=== PATIENT | female | born 1935 | race Caucasian/White ===

== ENCOUNTER 2023-09-07 15:14 | Emergency (ER) | payer MEDICARE, MEDICAID, SELFPAY ==
--- NOTE | ~2023-09-07 | CT_ITS ---
EXAMINATION: CT head/brain wo IV con CLINICAL INFORMATION: Reason for Exam Acute psychosis, medical clearance COMPARISON: None available TECHNIQUE: Contiguous axial imaging was performed from the skull base to vertex without intravenous contrast. Sagittal and coronal reformatted images were obtained. This CT examination was performed using dose optimization techniques as appropriate, variously including the following: * Automated exposure control * Adjustment of mA and/or kV according to patient size (this includes techniques or standardized protocols for targeted exams where dose is matched to indication/reason for exam; i.e. extremities or head) Use of iterative reconstruction technique DLP: 508 mGy-cm FINDINGS: There is no evidence of acute intracranial hemorrhage. No mass-effect or ventricular shift is noted. No acute, territorial loss of ku-white differentiation. Prominence of the pituitary gland with upward convexity. Encephalomalacia/gliosis in the left frontal lobe. The ventricles and sulci are appropriate in size and configuration for the patient's stated age. Periventricular and subcortical white matter hypodensity is nonspecific but likely represents chronic microvascular ischemic change. No depressed calvarial fracture. Scattered polypoid mucosal thickening in the partially visualized paranasal sinuses. Intracranial atherosclerotic calcification is noted. Bilateral intraocular lens replacements. The mastoid air cells are clear. CT/CT head/brain wo IV con IMPRESSION: No acute intracranial hemorrhage or territorial loss of ku-white differentiation. Encephalomalacia/gliosis in the left frontal lobe. Prominence of the pituitary gland may represent an underlying pituitary adenoma. Correlation with biochemical testing is recommended.
--- NOTE | ~2023-09-07 | XR_ITS ---
EXAMINATION: XR CHEST CLINICAL INFORMATION: Evaluate pneumonia COMPARISON: None available. TECHNIQUE: 2 views of the chest were obtained. FINDINGS: Lungs are well expanded and clear. No interstitial disease, consolidation or pleural effusion. Cardiac silhouette is normal size. There is atherosclerotic calcification of the aorta. Surgical clips in the lower neck. Correlate for any remote history of thyroidectomy. Multilevel osteophyte formation of the thoracolumbar spine. A severe vertebral compression fracture is seen in the region of the thoracolumbar junction. XR/XR chest 2V IMPRESSION: * No acute pulmonary disease. No evidence of pneumonia. * A severe compression fracture is seen in the region of the thoracolumbar junction.
[2023-09-07 15:35] VITALS: BP 112/90; PULSE 71; RESP 19; TEMP 36.8; O2SAT 98; BMI 31.1
[2023-09-07 15:56] VITALS: BP 107/39; PULSE 68; RESP 18; TEMP 37.2; O2SAT 97
--- NOTE | 2023-09-07 16:27 | ED.GENADULT ---
HPI - General Adult General Chief complaint: Psychiatric Symptoms Stated complaint: feels like someone is trying to poison her.crisis Time Seen by Provider: 09/07/23 16:14 Source: patient Mode of arrival: ambulatory Limitations: no limitations History of Present Illness ED Provider: DR. Sharp HPI narrative: 88-year-old female seeking evaluation for depression and anxiety. Patient was seen by N and sent to the hospital under section 12 for progressive paranoid behavior, disorganized behavior. Patient lives in apartment building with her son claiming that she does not feel safe where she resides because her neighbor smoke weed in the building and because she reported to the police and the building's management they are communicating with her and spying on her via sophisticated equipments, Patient declined SI, no HI, no auditory or visual hallucination at this point. Patient had a cataract surgery in the left eye feeling slight discomfort but no fever, no chills, no eye discharge. Related Data Allergies Allergy/AdvReac Type Severity Reaction Status Date / Time aspirin Allergy Mild Nose Bleed Verified 09/07/23 15:44 Penicillins Allergy Mild Hives Verified 09/07/23 15:44 Review of Systems Review of Systems: All other systems are reviewed and are negative Constitutional: Reports as per HPI and Reports no additional constitutional complaints Eyes: Reports as per HPI and Reports no additional eye complaints Reports system reviewed and no additional complaints, except as documented Cardiovascular: Reports as per HPI and Reports no additional cardiovascular complaints Respiratory: Reports as per HPI and Reports no additional respiratory complaints Gastrointestinal: Reports as per HPI and Reports no additional gastrointestinal complaints Genitourinary: Reports no additional female genitourinary complaints Musculoskeletal: Reports no additional musculoskeletal complaints Skin/Breast: Reports system reviewed and no additional complaints, except as docu Psychiatric: Reports no additional psychiatric complaints Endocrine: Reports no additional endocrine complaints Hematologic/Lymphatic: Reports no additional hematologic/lymphatic complaints Allergic/Immunologic: Reports no additional allergic/immunologic complaints Reports system reviewed and no additional complaints, except as documented and Reports Abnormal speech present [facility] Social History Social History Advance Directives: No Advance Directives Information Provided: No Do you have a plan to hurt others: No Plan Physical Exam ED Vital Signs: Vital Signs - 24 hr 09/07/23 15:35 09/07/23 15:56 09/07/23 16:37 Temperature 98.2 F 98.9 F Pulse Rate 71 68 71 Respiratory Rate 19 18 17 Blood Pressure 112/90 H 107/39 L 126/39 L Pulse Oximetry 98 97 97 Oxygen Delivery Method Room Air Room Air Room Air 09/07/23 22:54 Temperature 97.9 F Pulse Rate 70 Respiratory Rate 18 Blood Pressure 133/44 L Pulse Oximetry 97 Oxygen Delivery Method Room Air BMI result Body Mass Index 31.1 Vital signs have been reviewed and appear to be correct. Blood pressure elevated. Heart rate normal. Respiratory rate normal. Temperature normal. Oxygen saturation normal. Appearance: Alert. Oriented X3. No acute distress. Head: Normal external exam. Normocephalic. Atraumatic. No Moore signs noted. No raccoon eyes noted Eyes: PERRLA. EOMI. Small area of subconjunctival hemorrhage at 09:00 o'clock otherwise Conjunctiva and sclera normal. Eyelids normal. ENT: TM's Normal. Pharynx normal. Uvula midline. Moist mucous membranes. No trismus noted. No drooling noted. No muffled voice noted. Neck: Normal inspection. Neck supple. FROM. No adenopathy. Thyroid Normal. No meningeal signs. No neck mass noted. CVS: Normal heart rate and rhythm. Heart sound normal. No murmurs noted. Pulses normal throughout. Respiratory: No respiratory distress. Painless inspiration. Breath sounds normal. No wheezes/rales/rhonchi noted. Chest nontender. No accessory muscle usage noted or decreased air movement noted. Abdomen: Soft and nontender. Bowel sounds normal in all 4 quadrants. No distention noted. No organomegaly noted. No visible injury noted. Back: No CVA tenderness. Full range of motion noted. Skin: Skin warm and dry. Normal skin color. Normal skin turgor. No rashes/lesions/lacerations noted. Extremities: No lower extremity edema. Extremities exhibit normal range of motion. Extremities nontender. Neuro: Oriented X 3. Cranial nerve exam: II-XII are grossly intact No motor deficit. No sensory deficit. Reflexes normal. Patient Orientation: Person, Place, Time and Situation, okay hygiene and grooming. Fair eye contact, attentive, no tics or tremors. Level of Consciousness: Awake, Appropriate and Alert Patient Behavior: Appropriate, Guarded, Cooperative and Anxious Mood Description: Constricted, Blunted and Apprehensive Affect Description: Constricted, Blunted and Apprehensive Patient Cognition Impaired: No Ability to Follow Directions: Excellent Speech Pattern: Clear, Appropriate and Spontaneous Speech, nonpressured, spontaneous with regular rate and rhythm, normal volume and prosody. No dysarthria. Memory Description: Intact, Immediate Intact and Short Term Intact Hallucinations: None Delusions: Present Thought Process: Intact Thought Content: Paranoid thoughts, denies Suicidal Ideation and denies Homicidal Ideation. Depressive Symptoms: Not present. Judgement and Insight: Limited but adequate. Course Reevaluation(s) Reevaluation #1: Patient medically cleared, labs reveals leukocytosis no source of infection, care team evaluation concern of acute psychosis patient made section 12 in the ED and will start physician observation. Time: 23:43 Medical Decision Making Differential Diagnosis Differential Diagnoses: The differential diagnosis associated with the presentation includes (Medical clearance, electrolyte derangement, severe anemia, UTI, pneumonia, intracranial pathology.) Admission/Observation Consideration of admission/observation: Escalation of care including admission/observation considered Consult Healthcare Provider Management of the patient was discussed with: Education Reporter (Care team) Lab Data MDM Lab Attestation statement: I reviewed the patient's lab results. 09/07/23 16:54 09/07/23 16:54 Labs: Lab Results 09/07/23 09/07/23 Range/Units 16:54 17:40 WBC 15.3 H (4.8-10.8) X10*3/uL RBC 4.53 (4.20-5.50) X10*6/uL Hgb 12.0 (12.0-16.0) g/dl Hct 39.2 (37.0-47.0) % MCV 86.5 (80.0-98.0) fL MCH 26.5 L (27.0-33.0) pg MCHC 30.6 L (31.0-35.0) g/dl RDW 16.6 H (11.0-16.0) % Plt Count 349 (160-400) X10*3/uL MPV 10.5 (9.4-12.3) fL Immature Gran % (Auto) 0.5 H (0.0-0.4) % Neut % (Auto) 51.0 (45-73) % Lymph % (Auto) 36.4 (20-40) % [place] % (Auto) 8.2 (2-11) % Eos % (Auto) 3.5 (0-4) % Baso % (Auto) 0.4 (0-2) % Lymph # (Auto) 5.6 H (1.2-4.9) X10*3/uL [place] # (Auto) 1.3 H (0.1-1.2) X10*3/uL Eos # (Auto) 0.5 H (0.0-0.4) X10*3/uL Baso # (Auto) 0.1 (0.0-0.2) X10*3/uL Abs Immat Gran (auto) 0.08 H (0.00-0.03) X10*3/uL Absolute Neuts (auto) 7.8 (2.0-8.3) x10*3/uL Absolute Nucleated RBC 0.000 (0.0-0.012) X10*3/uL Nucleated RBC % (auto) 0.0 (0.0-0.2) /100WBC Smear Tech's Comments VERIFIED Sodium 144 (135-145) mmol/L Potassium 3.7 (3.3-5.1) mmol/L Chloride 107 (96-108) mmol/L Carbon Dioxide 27 (22-29) mmol/L Anion Gap 14 (12-20) BUN 20 H (9-16) mg/dL Creatinine 1.14 (0.5-1.4) mg/dL Estim Creat Clear Calc 34.0 Estimated GFR 45 Random Glucose 113 (60-115) mg/dL Calcium 9.3 (8.4-10.2) mg/dL Total Bilirubin 0.2 (0.0-1.0) mg/dL AST 16 (5-31) U/L ALT 16 (0-31) U/L Alkaline Phosphatase 94 (39-117) U/L Total Protein 7.5 (6.5-8.0) g/dL Albumin 4.0 (3.5-5.0) g/dL Urine Color Yellow Urine Appearance Clear Urine pH 5.5 (5.0-9.0) Ur Specific [place] 1.015 (1.005-1.025) Urine Protein Trace (Neg-Trace) mg/dL Urine Glucose (UA) Negative (Negative) mg/dL Urine Ketones Negative (Negative) mg/dL Urine Blood Negative (Negative) Urine Nitrite Negative (Negative) Ur Leukocyte Esterase Negative (Negative) Urine Opiates Screen Not Detected (Not Detect) Ur Buprenorphine Scrn Not Detected (Not Detect) ng/mL Ur Oxycodone Screen Not Detected (Not Detect) ng/mL Urine Methadone Screen Not Detected (Not Detect) ng/mL Urine Fentanyl Screen Not Detected (Not Detect) Ur Barbiturates Screen Not Detected (Not Detect) Ur Phencyclidine Scrn Not Detected (Not Detect) Ur Amphetamines Screen Not Detected (Not Detect) U Benzodiazepines Scrn Not Detected (Not Detect) Urine Cocaine Screen Not Detected (Not Detect) U Marijuana (THC) Screen Not Detected (Not Detect) Independent Interpretation I performed an independent interpretation of an: Plain X-Ray (Chest: No acute intrathoracic pathology) and CT Scan (Head: No acute intracranial pathology) Radiology Impression Discussion of test interpretation with radiology: I have reviewed the radiologist's reading. Discharge Plan Discharge Clinical Impression: Acute psychosis Patient Disposition: Still a Patient Print Language: Norwegian
[2023-09-07 16:37] VITALS: BP 126/39; PULSE 71; RESP 17; O2SAT 97
[2023-09-07 17:17] LABS: Amphetamine Screen Urine Not Detected (Not Detect); Barbiturates, Urine Not Detected (Not Detect); Benzodiazepines Screen Urine Not Detected (Not Detect); Buprenorphine Scr Not Detected (Not Detect); Cannabinoid Screen Urine Not Detected (Not Detect); Cocaine Screen Urine Not Detected (Not Detect); Fentanyl, urine Not Detected (Not Detect); Methadone Screen, Urine Not Detected (Not Detect); Opiate Screen Urine Not Detected (Not Detect); Oxycodone Screen Urine Not Detected (Not Detect); Phencyclidine Screen Urine Not Detected (Not Detect)
[2023-09-07 17:20] LABS: Alanine Aminotransferase 16 U/L (0-31); Alkaline Phosphatase 94 U/L (39-117); Anion Gap 14 (12-20); Aspartate Amino Transferase 16 U/L (5-31); Bilirubin Total 0.2 mg/dL (0.0-1.0); Blood Urea Nitrogen 20 mg/dL (9-16); Calcium 9.3 mg/dL (8.4-10.2); Carbon Dioxide 27 mmol/L (22-29); Chloride 107 mmol/L (96-108); Estimated Glomerular Filt Rate 45; Glucose Random 113 mg/dL (60-115); Potassium 3.7 mmol/L (3.3-5.1); Sodium 144 mmol/L (135-145); Total Protein 7.5 g/dL (6.5-8.0)
--- NOTE | 2023-09-07 17:21 | MHC.EDTECH ---
BELONGINGS IN LOCKER #9
[2023-09-07 17:23] LABS: Basophils Absolute Auto 0.1 X10*3/uL (0.0-0.2); Basophils Percent Auto 0.4 % (0-2); Eosinophils Absolute Auto 0.5 X10*3/uL (0.0-0.4); Eosinophils Percent Auto 3.5 % (0-4); Hematocrit 39.2 % (37.0-47.0); Imm Gran Abs Auto 0.08 X10*3/uL (0.00-0.03); Imm Gran Pct Auto 0.5 % (0.0-0.4); Lymphocytes Absolute Auto 5.6 X10*3/uL (1.2-4.9); Lymphocytes Percent Auto 36.4 % (20-40); MANUAL DIFF FLAG SCAN; Mean Corpuscular HGB Conc 30.6 g/dl (31.0-35.0); Mean Corpuscular Hemoglobin 26.5 pg (27.0-33.0); Mean Corpuscular Volume 86.5 fL (80.0-98.0); Mean Platelet Volume 10.5 fL (9.4-12.3); Monocytes Absolute Auto 1.3 X10*3/uL (0.1-1.2); Monocytes Percent Auto 8.2 % (2-11); Neutrophils Absolute Auto 7.8 x10*3/uL (2.0-8.3); Platelet Count 349 X10*3/uL (160-400); Red Blood Count 4.53 X10*6/uL (4.20-5.50); Red Cell Distribution Width 16.6 % (11.0-16.0); SCAN SMEAR FLAG 1; White Blood Count 15.3 X10*3/uL (4.8-10.8)
[2023-09-07 17:38] LABS: SLIDE REVIEW VERIFIED
[2023-09-07 18:25] LABS: Appearance Urine Clear; Color Urine Yellow; Glucose Urine UA Negative (Negative); Leukocyte Esterase Urine Negative (Negative); Nitrite Urine Negative (Negative); PH 5.5 (5.0-9.0); Specific Gravity - Urine 1.015 (1.005-1.025); Urine Blood Negative (Negative); Urine Ketones Negative (Negative); Urine Protein Trace mg/dL (Neg-Trace)
[2023-09-07 22:54] VITALS: BP 133/44; PULSE 70; RESP 18; TEMP 36.6; O2SAT 97
[2023-09-08] MEDS: Apixaban 5 MG TABLET PO (01:46)
[2023-09-08] MEDS: Acetaminophen 325 MG TABLET 650 MG PO (01:57)
--- NOTE | 2023-09-08 03:19 | PC.NURSE ---
pt now resting quietly in hospital bed with eyes closed, breathing even and unlabored. no apparent distress noted at this time. call argenis w/in reach p requested Tylenol for eye/head pain earlier, only took 1 pill, 325mg, was scared to take 2 . taken with applesauce
[2023-09-08 03:31] VITALS: BP 129/60; PULSE 72; RESP 16; TEMP 36.7; O2SAT 97
--- NOTE | 2023-09-08 07:36 | ECG_ITS ---
Test Reason : chest pain Blood Pressure : / mmHG Vent. Rate : 077 BPM Atrial Rate : 077 BPM P-R Int : 196 ms QRS Dur : 076 ms QT Int : 400 ms P-R-T Axes : 012 -26 018 degrees QTc Int : 452 ms Normal sinus rhythm Minimal voltage criteria for LVH, may be normal variant ( R in aVL ) Cannot rule out Anterior infarct , age undetermined Abnormal ECG No previous ECGs available Referred By: Jonathon Sharp Electronically Signed By:KINDRA COLÓN MD
[2023-09-08 13:20] LABS: TSH reflex Free T4 0.92 uIU/mL (0.32-4.0)
--- NOTE | 2023-09-08 13:49 | P.CNPS_ITS ---
History of Present Illness Date of Service: 09/08/2023 Chief Complaint: feels like someone is trying to poison her.crisis Reason for Consult: paranoia Discussed with referring provider: Yes Sources of Information: patient interviewed, chart reviewed and crisis/core team assessment reviewed HPI Narrative: Ms. Coronado is a 88 year-old woman who was brought to [facility] ED via EMS after pt had called police (which is not the first time) reporting that neighbors are poisoning her apartment and water. She has called in the past reporting these concerns about her neighbors. This contract writer attempted to reach her son but unable to do so, left VM with call back. However, care team clinician did reach out to son last night and he reported that paranoia has been going on for the past 3 years, worsening in the past several months. However, son did not have significant concerns for her safety and voiced preference to have pt return home. In the ED- CBC shows leukocytosis (WBC 15). CMP without electrolyte imbalances, BUN 20, Cr 1.14, creatinine clearance 34. UA with leukocytosis. Head CT without acute pathology but does show atrophy, microvascular changes, encephalomalacia/gliosis in left frontal lobe, prominence of pituitary gland (?pituitary adenoma) (she does follow up with endocrinology and had partial thyroidectomy last year). Pt seen in the ED. She presents as pleasant, somewhat anxious as she states she wants to go home and feels betrayed by people who sent her here. She volunteers information about being depressed and maybe needing an antidepressant. When asked about concerns about her neighbors this being the reason she was brought to the hospital, pt denies any concerns with the neighbors stating: they just smoke weed, like my son says, I just have to get use to. She denies that neighbors as she reported to people and [facility] correspondence that they are trying to poison her. She denies SI/HI. No over VH/AH. I do suspect she is not fully forthcoming with extend of delusional content due to fear of admission. She does seem to follow up with her PCP and recently with ophthalmology as she had cataract surgery. Often asks this contract writer if I think she is crazy. She does report she wants to go home because she has not received her usual medications here in the hospital including thyroid replacement and eye drops post eye surgery. She does not present as combative nor agitated. She reports her son works a lot and she has some support in the home. Past Psychiatric History: Inpt: none OP: none Medical Evaluation Reviewed: Yes Diagnostics Vital Signs (24Hr): Vital Signs - 24 hr 09/07/23 15:35 09/07/23 15:56 09/07/23 16:37 Temperature 98.2 F 98.9 F Pulse Rate 71 68 71 Respiratory Rate 19 18 17 Blood Pressure 112/90 H 107/39 L 126/39 L Pulse Oximetry 98 97 97 Oxygen Delivery Method Room Air Room Air Room Air 09/07/23 22:54 09/08/23 03:31 Temperature 97.9 F 98.1 F Pulse Rate 70 72 Respiratory Rate 18 16 Blood Pressure 133/44 L 129/60 Pulse Oximetry 97 97 Oxygen Delivery Method Room Air Room Air BMI result Body Mass Index 31.1 Labs 09/07/23 16:54 09/07/23 16:54 Labs: Laboratory Results - last 48 hr 09/07/23 09/07/23 09/08/23 16:54 17:40 12:26 WBC 15.3 H RBC 4.53 Hgb 12.0 Hct 39.2 MCV 86.5 MCH 26.5 L MCHC 30.6 L RDW 16.6 H Plt Count 349 MPV 10.5 Immature Gran % (Auto) 0.5 H Neut % (Auto) 51.0 Lymph % (Auto) 36.4 [place] % (Auto) 8.2 Eos % (Auto) 3.5 Baso % (Auto) 0.4 Lymph # (Auto) 5.6 H [place] # (Auto) 1.3 H Eos # (Auto) 0.5 H Baso # (Auto) 0.1 Abs Immat Gran (auto) 0.08 H Absolute Neuts (auto) 7.8 Absolute Nucleated RBC 0.000 Nucleated RBC % (auto) 0.0 Smear Tech's Comments VERIFIED Sodium 144 Potassium 3.7 Chloride 107 Carbon Dioxide 27 Anion Gap 14 BUN 20 H Creatinine 1.14 Estim Creat Clear Calc 34.0 Estimated GFR 45 Random Glucose 113 Calcium 9.3 Total Bilirubin 0.2 AST 16 ALT 16 Alkaline Phosphatase 94 Total Protein 7.5 Albumin 4.0 TSH 0.92 Urine Color Yellow Urine Appearance Clear Urine pH 5.5 Ur Specific [place] 1.015 Urine Protein Trace Urine Glucose (UA) Negative Urine Ketones Negative Urine Blood Negative Urine Nitrite Negative Ur Leukocyte Esterase Negative Urine Opiates Screen Not Detected Ur Buprenorphine Scrn Not Detected Ur Oxycodone Screen Not Detected Urine Methadone Screen Not Detected Urine Fentanyl Screen Not Detected Ur Barbiturates Screen Not Detected Ur Phencyclidine Scrn Not Detected Ur Amphetamines Screen Not Detected U Benzodiazepines Scrn Not Detected Urine Cocaine Screen Not Detected U Marijuana (THC) Screen Not Detected Imaging Radiology Impressions: ITS Impressions Chest X-Ray 09/07/23 18:38 IMPRESSION: * No acute pulmonary disease. No evidence of pneumonia. * A severe compression fracture is seen in the region of the thoracolumbar junction. Head CT 09/07/23 20:12 IMPRESSION: No acute intracranial hemorrhage or territorial loss of ku-white differentiation. Encephalomalacia/gliosis in the left frontal lobe. Prominence of the pituitary gland may represent an underlying pituitary adenoma. Correlation with biochemical testing is recommended. Mental Status Exam Mental Status Exam Narrative: Appearancee: wearing hospital gown, fair hygiene, in NAD Behavior: cooperative, initially anxious Psychomotor: no agitation or retardation noted Speech: clar, normal rate/rhythm/volume, spontaneous TP: mostly linear TC: wanting to go home Mood: okay Affect: congruent, brightens at times SI: none HI: none VH/AH: no overt Delusions: suspect not fully forthcoming with paranoid ideas Insight/judgment: poor x 2. Memory/cog: alert, oriented to place, month, year, day. Medications Allergies Allergies Allergy/AdvReac Type Severity Reaction Status Date / Time aspirin Allergy Mild Nose Bleed Verified 09/07/23 15:44 Penicillins Allergy Mild Hives Verified 09/07/23 15:44 Assessment & Plan Assessment & Plan (1) MCI (mild cognitive impairment): Status: Acute Code(s): G31.84 - Mild cognitive impairment of uncertain or unknown etiology Plan Mrs. Coronado is a 88 ese-old woman who was brought via EMS after assess by [facility] in coordination with police as pt has been calling them stating that neighbors ar trying to harm her. Here, pt denies any concerns with her neighbors. I do suspect she is not fully forthcoming about it but nonetheless she is organized and grossly coherent. This contract writer attempted to reach her son left with call back with no success. Care team and [facility] raised concern as to son's lack of concern of late onset psychosis. My sense if that most likely paranoia may be related to dementing process of vascular nature. Need to complete formal assessments to determine extend of cognitive/memory impairment. Pt asks to leave. No objective evidence of imminent safety concerns due to inability to care for herself at this point. She reported she had telehealth appointment with new PCP today at 10 am this contract writer called her PCP to confirm this and also get collateral information. I was able to confirm that she did in fact had appointment due this morning with new PCP. Pending return call from provider. When discussed with pt, recommendation of cognitive/memory assessment, she does verbalize agreement and reiterates that she does follow up with her medical providers, which appears accurate. PLAN 1. Discharged back home with plan for pt to follow up with PCP. May need new appointment as she missed today's. 2. will forward this note to her PCP to follow up on referral to [facility]. Total time managing care of this patient today ____ minutes.
--- NOTE | 2023-09-08 16:12 | MHC.CARE ---
Per Vicki Nichols's meeting in the CARE team office today [facility] is safe to return home to her son and current providers. T/W will ask provider for D/C order
[2023-09-08 16:23] VITALS: BP 129/60; PULSE 72; RESP 16; TEMP 36.7; O2SAT 97
[2023-09-09 20:43] LABS: Prolactin 13.8 ng/mL
== END 2023-09-08 16:34 | disposition home or self-care (01) ==
PROVIDERS: Social Worker; Emergency Provider Emergency Medicine
DX: F23 Brief psychotic disorder (principal); G31.84 Mild cognitive impairment of uncertain or unknown etiology; R07.9 Chest pain, unspecified; F32.A Depression, unspecified; F41.9 Anxiety disorder, unspecified
CPT/HCPCS: 36415; 70450; 71046; 80053; 80307; 81003; 84146; 84443; 85025; 93005; 99284; 99285; S9485

== ENCOUNTER → 2023-09-07 17:01 | Outpatient (BNV) | payer MEDICARE, MEDICAID, SELFPAY | PROVIDERS: Emergency Provider Emergency Medicine; Visit Provider Social Worker | DX: F33.0 Major depressive disorder, recurrent, mild (principal); G31.84 Mild cognitive impairment of uncertain or unknown etiology | CPT/HCPCS: 99284 ==

== ENCOUNTER → 2023-09-08 07:36 | Outpatient (BNV) | payer MEDICARE, MEDICAID, SELFPAY | PROVIDERS: Emergency Provider Emergency Medicine; Visit Provider Internal Medicine Cardiovascular Disease | DX: R07.9 Chest pain, unspecified (principal); R94.31 Abnormal electrocardiogram [ECG] [EKG] | CPT/HCPCS: 93010 ==